=== PATIENT | male | born 1975 ===

== ENCOUNTER 2016-11-12 13:35 | Emergency (ER) | payer OTHER ==
[2016-11-12 13:42] VITALS: RESP 16; TEMP 97.9
[2016-11-12] MEDS ORDERED: IBUPROFEN 600 MG TAB PO ONE (13:54)
--- NOTE | 2016-11-12 14:18 | EDPHY ---
H & P Stated Complaint: R lower quad pain radiating to groin x 1 week, r testicle pain - Personal History Current Tetanus/Diphtheria Vaccine: Unsure Current Tetanus Diphtheria and Acellular Pertussis (TDAP): Unsure - Medical/Surgical History Hx Asthma: No Hx Chronic Respiratory Disease: No Hx Diabetes: No Hx Cardiac Disease: No Hx Renal Disease: No Hx Cirrhosis: No Hx Alcoholism: No Hx HIV/AIDS: No Hx Splenectomy or Spleen Trauma: No Other PMH: denies. no surgeries - Social History Smoking Status: Never smoked Time Seen by Provider: 11/12/16 13:45 HPI/ROS: CHIEF COMPLAINT: RLQ pain and testicle pain and swelling. HISTORY OF PRESENT ILLNESS: The patient is a 40 y/o male arriving with his boss from urgent care complaining of nearly constant right lower abdomen and right testicle pain onset after heavy lifting at work about 1 week ago. He has associated intermittent swelling in the testicle. His pain is aggravated by movement and lifting, but his pain is also present when sitting still. He has taken Tylenol for symptoms with minimal alleviation. No associated dysuria or fever. He denies history of hernias or other pertinent medical history. He denies other complaints. REVIEW OF SYSTEMS: Constitutional: No fever, no chills Eyes: No visual changes ENT: No sore throat Respiratory: No cough, no shortness of breath Cardiac: No chest pain Gastrointestinal: see HPI Genitourinary: See HPI Musculoskeletal: No leg pain or swelling Skin: No rash Neurological: No headache, no numbness, no weakness Psychiatric: No depression (Rosana Gallegos) - Medical/Surgical History PMH: Denies (Rosana Gallegos) - Social History Additional Social History: Boss at bedside. This is a workman's comp injury. (Rosana Gallegos) - Physical Exam Exam: General Appearance: Alert, no distress Eyes: Pupils equal and round, no conjunctival pallor or injection ENT, Mouth: Mucous membranes moist Neck: Normal inspection Respiratory: Lungs are clear to auscultation Cardiovascular: Regular rate and rhythm Gastrointestinal: Abdomen is soft, suprapubic tenderness to palpation : Mild tenderness to palpation of right testicle, no inguinal tenderness or hernia Neurological: A&O, nonfocal, normal gait Skin: Warm and dry, no rash Extremities: Nontender, no pedal edema Psychiatric: Mood and affect normal (Rosana Gallegos) Constitutional: Initial Vital Signs Temperature (C) 36.6 C 11/12/16 13:39 Heart Rate 67 11/12/16 13:39 Respiratory Rate 16 11/12/16 13:39 Blood Pressure 117/86 H 11/12/16 13:39 O2 Sat (%) 98 11/12/16 13:39 O2 Delivery Mode Room Air Allergies/Adverse Reactions: No Known Allergies Allergy (Unverified 11/12/16 13:37) Home Medications: Medication Instructions Recorded Tamsulosin HCl [Flomax 0.4 MG (*)] 0.4 mg PO DAILY #4 cap 11/12/16 Medical Decision Making - Diagnostics Imaging: Testicular ultrasound read by Dr. Liu is normal. (Rosana Gallegos) CT scan of abdomen and pelvis without contrast: Significant for a 4.2 mm prostatic urethral calcification. This could be chronic or could represent a stone. The appendix was visualized. No evidence of appendicitis. Moderate constipation. The CT scan was otherwise unremarkable. No hydroureter or hydronephrosis. Results were discussed with staff radiologist Dr. Amadou Valderrama. (Darius Andrea) ED Course/Re-evaluation: This is a healthy 40 y/o male who presents right testicular pain. There is no evidence hernia on exam. He has testicular tenderness so I will proceed with a testicular ultrasound to r/o torsion/epididymitis. Plan for CBC, urine dip, and testicular US. 600mg PO ibuprofen administered for pain. Urine dip is normal. Ultrasound results discussed with the patient. He continues to have testicular discomfort with a benign exam. CT scan to out ureteral calculus versus appendicitis. If study is normal, I feel that he can be safely discharged home. (Rosana Gallegos) I took over care of this patient at 3:30 p.m.. The patient presented to the emergency department with complaint of right-sided lower abdominal pain and right-sided testicular pain ongoing for about a week after doing some heavy lifting at work. His testicular ultrasound was negative. He was sent for CT imaging for noncontrast study of the abdomen and pelvis to evaluate for possible kidney stone. Please see Dr. franks note for further details on physical exam. There was no physical exam evidence of hernia or other significant findings. 5:30 p.m., patient re-evaluated. Results of his CT scan, blood work and urinalysis were discussed with him and his co-worker. He reports he is feeling better now but does have some discomfort in the suprapubic region. He has mild tenderness on palpation of this region. Otherwise his repeat abdominal exam is benign he is soft and nontender throughout. Repeat examination of his testicles was unremarkable. No masses, no pain on palpation or discoloration, normal lie. His vital signs have been reviewed and are normal. Based on his clinical exam CT findings as noted above may be significant for a 4.2 mm stone in the prostatic urethra at this time. Plan will be to start him on Flomax, he will be given 0.4 mg in the emergency department now. He feels comfortable going home and I feel he is safe for discharge. He is to follow up with his workman's Comp physician on Monday or Monday of this week. I reviewed strict return to emergency department precautions with him and his pressure supervisor. He will get a prescription for Flomax and I instructed him on high-dose ibuprofen administration over the next 2-3 days. He was discharged in good condition. ( Darius Andrea) Differential Diagnosis: Differential diagnosis includes though it is not limited to testicular torsion, epididymitis, incarcerated hernia, appendicitis, renal colic, UTI. (Rosana Gallegos) - Data Points Laboratory Results: Laboratory Results 11/12/16 14:20 Medications Given: Discontinued Medications Ibuprofen (Motrin) 600 mg PO EDNOW ONE Stop: 11/12/16 13:55 Last Admin: 11/12/16 13:57 Dose: 600 mg Tamsulosin HCl (Flomax) 0.4 mg PO EDNOW ONE Stop: 11/12/16 17:38 Last Admin: 11/12/16 17:46 Dose: 0.4 mg Departure - Departure Disposition: Home, Routine, Self-Care Clinical Impression: Testicular pain, right, Suprapubic pain, Possible kidney stone Condition: Good Instructions: Testicle Pain (ED) Additional Instructions: 1. Take 600mg ibuprofen every 6-8 hours for pain and swelling over the next 3-5 days. 2. Follow up with urologist this coming week for re-evaluation. 3. Return to the ED for severe pain, fever, dramatic increase in swelling of your testicles, difficulty urinating or other worsening of condition. Referrals: NONE *PRIMARY CARE P,. [Primary Care Provider] - As per Instructions Demetri Goldberg MD [Medical Doctor] - As per Instructions Stand Alone Forms: Work Limited Duty Prescriptions: Tamsulosin HCl [Flomax 0.4 MG (*)] 0.4 mg PO DAILY #4 cap Report Scribed for: Rosana Gallegos Report Scribed by: Yolanda Whitman Date of Report: 11/12/16 Time of Report: 14:18 Physician Review and Approval Statement: 11/12/16 14:18 Portions of this note were transcribed by a medical billing instructor. I personally performed a history, physical exam, medical decision making, and confirmed accuracy of information the transcribed note. (Rosana Gallegos)
[2016-11-12 14:32] LABS: % IMMATURE GRANULYOCYTES 0.3 % (0.0-1.1); ABSOLUTE IMMATURE GRANULOCYTES 0.02 10^3/uL (0.00-0.10); ADD DIFF? NO; ADD MORPH? NO; ADD SCAN? NO; ATYPICAL LYMPHOCYTE FLAG 10 (0-99); FRAGMENT RBC FLAG 0 (0-99); HEMATOCRIT 44.5 % (40.0-51.0); HEMOGLOBIN 15.9 g/dL (13.7-17.5); LEFT SHIFT FLG 0 (0-99); LIPEMIA HEMOLYSIS FLAG 90 (0-99); MEAN CELL HEMOGLOBIN 31.2 pg (27.9-34.1); MEAN CELL HEMOGLOBIN CONCENTR. 35.7 g/dL (32.4-36.7); MEAN CELL VOLUME 87.4 fL (81.5-99.8); MEAN PLATELET VOLUME 10.3 fL (8.7-11.7); PLATELET CLUMPS FLAG 10 (0-99); PLATELET COUNT 262 10^3/uL (150-400); RED BLOOD CELL COUNT 5.09 10^6/uL (4.40-6.38); RED CELL DISTRIBUTION WIDTH 12.2 % (11.5-15.2)
[2016-11-12 16:07] LABS: COLOR YELLOW; LEUKOCYTE ESTERASE,URINE NEGATIVE (NEGATIVE); NITRITE,URINE NEGATIVE (NEGATIVE)
[2016-11-12 16:08] LABS: MUCUS TRACE /lpf (NONE-1+)
[2016-11-12] MEDS ORDERED: TAMSULOSIN HCL 0.4 MG CAP PO ONE (17:37)
[2016-11-12 17:47] VITALS: BP 128/54; PULSE 80; O2SAT 95
== END 2016-11-12 17:57 | disposition home or self-care (01) ==
DX: N50.811 Right testicular pain (principal); R10.9 Unspecified abdominal pain